=== PATIENT | male | born 1980 | race Caucasian/White ===

== ENCOUNTER 2017-08-19 18:59 | Emergency (ER) | payer BC ==
[2017-08-19 19:10] VITALS: TEMP 98; O2SAT 100
[2017-08-19] MEDS ORDERED: Tetanus/Diphtheria Toxoids 0.5 ml Syringe IM ONE ×2 (21:08→21:13)
[2017-08-19] MEDS ORDERED: Lidocaine 2% Inj (20ml) ONE (21:13)
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
[2017-08-19 22:03] VITALS: BP 140/70; PULSE 78; RESP 16
[2017-08-19] MEDS ORDERED: Bacitracin 500 Units/gm Oint Foilpak UD ONE (22:04)
== END 2017-08-19 22:03 | disposition home or self-care (01) ==
LOC: C.ER 18:59
DX: S01.511A Laceration without foreign body of lip, initial encounter (principal); Y04.0XXA Assault by unarmed brawl or fight, initial encounter; Z23 Encounter for immunization